=== PATIENT | female | born 1980 | race Caucasian/White ===

== ENCOUNTER 2023-10-31 03:43 | Emergency (ER) | payer OTHER ==
[2023-10-31] MEDS ORDERED: NA CHLORIDE 0.9% 1,000 ML ONE (04:48)
[2023-10-31] MEDS ORDERED: PROMETHAZINE 25 MG TABLET ONE (05:05)
[2023-10-31] MEDS ORDERED: HYDROCODONE/APAP 5/325 MG TAB ONE (05:05)
[2023-10-31 05:06] LABS: Hematocrit 33.6 % (36.0-45.0); MCV 102.3 fL (80-100); MPV 7.7 fL (7.6-11.3); Platelets 177 thou/uL (152-406); RBC Red Blood Cell Count 3.28 M/uL (3.86-4.86)
[2023-10-31 05:12] LABS: Specific Gravity 1.021 (1.005-1.030)
[2023-10-31 05:24] LABS: Urine Bacteria None Seen /HPF (<20); Urine Bilirubin NEGATIVE (Negative); Urine Blood Negative (Negative); Urine Clarity Extremely Turbid (Clear); Urine Color Light-Orange (Yellow); Urine Glucose NEGATIVE (Negative); Urine Protein NEGATIVE (Negative); Urine RBC None Seen /HPF (None Seen); Urine Urobilinogen Normal (Normal); Urine pH 7.5 (5.0-7.0)
[2023-10-31 05:25] LABS: Albumin 3.2 g/dL (3.4-5.0); Bilirubin Total 0.3 mg/dL (0.2-1.0); Potassium 3.3 mEq/L (3.5-5.1); Protein, Total 7.1 g/dL (6.4-8.2)
[2023-10-31] MEDS ORDERED: AZITHROMYCIN 250 MG TAB ONE (06:52)
[2023-10-31] MEDS ORDERED: CEFTRIAXONE 1000 MG/VIAL ONE (06:52)
--- NOTE | 2023-10-31 06:52 | ER ---
Nurse's Notes [facility] Name: Kaylie Morrow Age: 42 yrs Sex: Female : 1980 Arrival Date: 10/31/2023 Time: 03:43 Bed 16 Private MD: Diagnosis: Pleurisy;Strain of muscle and tendon of front wall of thorax;Strain of muscle and tendon of back wall of thorax;Fracture of one rib, right side;Atelectasis Presentation: 10/31 04:04 Chief complaint: Patient states: pt was laying on the floor and got up, hurt the right rv side of the ribs, heard a popping sound, 2 days ago. turned and twisted the wrong way and hurt the right side again, complaining of pain when breathing. hx of vitamin C and D deficiency. Coronavirus screen: At this time, the client does not indicate any symptoms associated with coronavirus-19. Ebola Screen: No symptoms or risks identified at this time. Initial Sepsis Screen: Does the patient meet any 2 criteria? No. Patient's initial sepsis screen is negative. Does the patient have a suspected source of infection? No. Patient's initial sepsis screen is negative. Risk Assessment: Do you want to hurt yourself or someone else? Patient reports no desire to harm self or others. Onset of symptoms was October 31, 2023. 04:04 Method Of Arrival: Ambulatory 04:04 Acuity: MONI 4 rv Triage Assessment: 04:07 General: Appears uncomfortable, Behavior is calm, cooperative. Pain: Complains of pain rv in right lateral anterior chest. Neuro: Level of Consciousness is awake, alert, obeys commands, Oriented to person, place, time, situation. Cardiovascular: Capillary refill < 3 seconds Patient's skin is warm and dry. Respiratory: Airway is patent Respiratory effort is even, unlabored. Respiratory: Reports pain with respiration. GI: No signs and/or symptoms were reported involving the gastrointestinal system. : No signs and/or symptoms were reported regarding the genitourinary system. Derm: Skin is intact, Skin temperature is. Historical: - Allergies: 04:07 Toradol; rv 04:07 Demerol; rv 04:07 Tramadol HCl; rv - PMHx: 04:07 chiari malformation; vitamin C and D deficiency; ...tachycardia syndrome; rv - PSHx: 04:07 section; Ligation of fallopian tube; Appendectomy; chiari malformation surgery;rv - Immunization history:: Adult Immunizations up to date. - Social history:: Smoking status: Patient reports the use of cigarette tobacco products, smokes one pack cigarettes per day. - Family history:: not pertinent. Screenin:10 [facility] ED Fall Risk Assessment (Adult) History of falling in the last 3 months, rv including since admission No falls in past 3 months (0 pts) Score/Fall Risk Level 0 - 2 = Low Risk Oriented to surroundings, Maintained a safe environment, Educated pt \T\ family on fall prevention, incl call for assistance when getting out of bed, Assessed \T\ reinforced patient's understanding of fall precautions. Abuse screen: Denies threats or abuse. Denies injuries from another. Nutritional screening: No deficits noted. Tuberculosis screening: No symptoms or risk factors identified. Assessment: 04:16 General: Appears in no apparent distress. uncomfortable, Behavior is calm, cooperative, km8 appropriate for age. Pain: Complains of pain in right lateral anterior chest Pain currently is 8 out of 10 on a pain scale. Quality of pain is described as aching. Neuro: Akers Agitation-Sedation Scale (RASS): 0 - Alert and Calm Level of Consciousness is awake, alert, obeys commands, Oriented to person, place, time, situation. Cardiovascular: Capillary refill < 3 seconds Patient's skin is warm and dry. Respiratory: Airway is patent Respiratory effort is even, unlabored, Respiratory pattern is regular, symmetrical. GI: No signs and/or symptoms were reported involving the gastrointestinal system. : No signs and/or symptoms were reported regarding the genitourinary system. EENT: No signs and/or symptoms were reported regarding the EENT system. Derm: Skin is intact, is healthy with good turgor, Skin is dry, Skin is pink, warm \T\ dry. normal, Skin temperature is warm. Musculoskeletal: No signs and/or symptoms reported regarding the musculoskeletal system. Circulation, motion, and sensation intact. Range of motion: intact in all extremities. 05:00 Reassessment: Patient appears in no apparent distress at this time. No changes from km8 previously documented assessment. Patient and/or family updated on plan of care and expected duration. Pain level reassessed. Patient is alert, oriented x 3, equal unlabored respirations, skin warm/dry/pink. 06:00 Reassessment: Patient appears in no apparent distress at this time. No changes from km8 previously documented assessment. Patient and/or family updated on plan of care and expected duration. Pain level reassessed. Patient is alert, oriented x 3, equal unlabored respirations, skin warm/dry/pink. Vital Signs: 04:04 BP 110 / 64; Pulse 55; Resp 16; Temp 98; Pulse Ox 100% ; Weight 70.76 kg; Height 5 ft. rv 3 in. ; 06:47 BP 119 / 78; Pulse 59; Resp 16; Pulse Ox 100% on R/A; km8 04:04 Body Mass Index 27.63 (70.76 kg, 160.02 cm) rv [place] Coma Score: 04:16 Eye Response: spontaneous(4). Motor Response: obeys commands(6). Verbal Response: km8 oriented(5). Total: 15. ED Course: 03:50 Patient arrived in ED. gm2 04:07 Triage completed. rv 04:07 Arm band placed on right wrist. rv 04:10 Patient has correct armband on for positive identification. Client placed on continuous rv cardiac and pulse oximetry monitoring. NIBP monitoring applied. 04:10 No provider procedures requiring assistance completed. rv 04:13 Gary Bynum MD is Attending Physician. lul 04:13 Bibiana Garduno, SHADIA is Primary Nurse. km8 04:16 Patient maintains SpO2 saturation greater than 95% on room air. km8 04:42 PREGU Sent. km8 04:42 Urinalysis w/ reflexes Sent. km8 04:42 Lipase Sent. km8 04:42 Comprehensive Metabolic Panel Sent. km8 04:42 CBC with Diff Sent. km8 04:42 Inserted saline lock: 20 gauge in left antecubital area, using aseptic technique. Blood km8 collected. 05:05 Chest Single View XRAY In Process Unspecified. EDMS 06:18 CT Chest For PE Angio In Process Unspecified. EDMS 06:47 Provided Education on: IS teaching. km8 06:47 INCENTIVE SPIROMETRY Sent. km8 06:51 Isai Neville MD is Referral Physician. lul 07:13 IV discontinued, intact, bleeding controlled, No redness/swelling at site. Pressure km8 dressing applied. Administered Medications: 04:42 Drug: NS 0.9% IV 1000 ml IV at 1 bolus Per protocol; 1000 mL bolus Route: IV; Rate: 1 km8 bolus; Site: left antecubital; 05:56 Follow up: IV Status: Completed infusion; IV Intake: 1000ml km8 04:52 Drug: [place] PO 5 mg-325 mg 2 tabs PO once Route: PO; km8 05:56 Follow up: Response: No adverse reaction; Pain is decreased km8 04:52 Drug: Promethazine PO 25 mg PO once Route: PO; km8 05:56 Follow up: Response: No adverse reaction km8 06:47 Drug: Rocephin IV 1 grams IV at per protocol once; Given slow IV push per pharmacy km8 instructions Route: IV; Rate: per protocol; Site: left antecubital; 06:55 Follow up: IV Status: Completed infusion km8 06:47 Drug: AZITHromycin PO 500 mg PO once Route: PO; km8 07:13 Follow up: Response: Medication administered at discharge. km8 Medication: 04:10 VIS not applicable for this client. rv Intake: 05:56 IV: 1000ml; Total: 1000ml. km8 Outcome: 06:51 Discharge ordered by MD. mccarty 07:14 Discharged to home ambulatory, with significant other, km8 07:14 Condition: good 07:14 Discharge instructions given to patient, significant other, Instructed on discharge instructions, follow up and referral plans. medication usage, Demonstrated understanding of instructions, follow-up care, medications, Prescriptions given X 3, 07:15 Patient left the ED. km8 Signatures: Dispatcher [employer] EDMS Gary Bynum MD MD cha Vicente, Ronaldo, RN RN Abbey Sosa [facility] Bibiana Garduno RN RN km8 Corrections: (The following items were deleted from the chart) 04:09 04:07 Allergies: No Known Allergies; rv rv
--- NOTE | 2023-10-31 06:52 | EDPHYS ---
Physician Documentation [facility] Name: Kaylie Morrow Age: 42 yrs Sex: Female : 1980 Arrival Date: 10/31/2023 Time: 03:43 Bed 16 Private MD: ED Physician Gary Bynum HPI: 10/31 05:11 This 42 yrs old Female presents to ER via Ambulatory with complaints of Rt lul rib pain. 05:11 The patient has shortness of breath at rest, with light activity. Onset: The lul symptoms/episode began/occurred 2 day(s) ago. Duration: The symptoms are continuous, and are steadily getting worse. The patient's shortness of breath is aggravated by coughing, exertion, light activity, is alleviated by nothing. Associated signs and symptoms: Pertinent positives: chest pain. Severity of symptoms: At their worst the symptoms were moderate in the emergency department the symptoms are unchanged. Associated signs and symptoms: The patient has no apparent associated signs or symptoms. The chest pain is described as sharp. Historical: - Allergies: 04:07 Toradol; rv 04:07 Demerol; rv 04:07 Tramadol HCl; rv - PMHx: 04:07 chiari malformation; vitamin C and D deficiency; ...tachycardia syndrome; rv - PSHx: 04:07 section; Ligation of fallopian tube; Appendectomy; chiari malformation surgery;rv - Immunization history:: Adult Immunizations up to date. - Social history:: Smoking status: Patient reports the use of cigarette tobacco products, smokes one pack cigarettes per day. - Family history:: not pertinent. ROS: 05:11 Constitutional: Negative for fever, chills, and weight loss, Eyes: Negative for injury, lul pain, redness, and discharge, ENT: Negative for injury, pain, and discharge, Neck: Negative for injury, pain, and swelling, Cardiovascular: Negative for chest pain, palpitations, and edema, Abdomen/GI: Negative for abdominal pain, nausea, vomiting, diarrhea, and constipation, Back: Negative for injury and pain, : Negative for injury, bleeding, discharge, and swelling, MS/Extremity: Negative for injury and deformity, Skin: Negative for injury, rash, and discoloration, Neuro: Negative for headache, weakness, numbness, tingling, and seizure, Psych: Negative for depression, anxiety, suicide ideation, homicidal ideation, and hallucinations, Allergy/Immunology: Negative for hives, rash, and allergies, Endocrine: Negative for neck swelling, polydipsia, polyuria, polyphagia, and marked weight changes, Hematologic/Lymphatic: Negative for swollen nodes, abnormal bleeding, and unusual bruising, 05:11 Respiratory: Positive for cough, Exam: 05:11 Constitutional: This is a well developed, well nourished patient who is awake, alert, lul and in no acute distress. Head/Face: Normocephalic, atraumatic. Eyes: Pupils equal round and reactive to light, extra-ocular motions intact. Lids and lashes normal. Conjunctiva and sclera are non-icteric and not injected. Cornea within normal limits. Periorbital areas with no swelling, redness, or edema. ENT: Nares patent. No nasal discharge, no septal abnormalities noted. Tympanic membranes are normal and external auditory canals are clear. Oropharynx with no redness, swelling, or masses, exudates, or evidence of obstruction, uvula midline. Mucous membranes moist. Neck: Trachea midline, no thyromegaly or masses palpated, and no cervical lymphadenopathy. Supple, full range of motion without nuchal rigidity, or vertebral point tenderness. No Meningismus. Cardiovascular: Regular rate and rhythm with a normal S1 and S2. No gallops, murmurs, or rubs. Normal PMI, no JVD. No pulse deficits. Respiratory: Lungs have equal breath sounds bilaterally, clear to auscultation and percussion. No rales, rhonchi or wheezes noted. No increased work of breathing, no retractions or nasal flaring. Abdomen/GI: Soft, non-tender, with normal bowel sounds. No distension or tympany. No guarding or rebound. No evidence of tenderness throughout. Back: No spinal tenderness. No costovertebral tenderness. Full range of motion. Female : Normal external genitalia. Skin: Warm, dry with normal turgor. Normal color with no rashes, no lesions, and no evidence of cellulitis. MS/ Extremity: Pulses equal, no cyanosis. Neurovascular intact. Full, normal range of motion. Neuro: Awake and alert, GCS 15, oriented to person, place, time, and situation. Cranial nerves II-XII grossly intact. Motor strength 5/5 in all extremities. Sensory grossly intact. Cerebellar exam normal. Normal gait. 05:11 Chest/axilla: Inspection: normal, no acute changes, Palpation: tenderness, that is moderate, of the right lateral posterior chest and right lateral anterior chest, Axilla: are normal, no acute changes, Lymph nodes: lymphadenopathy is not appreciated, Vital Signs: 04:04 BP 110 / 64; Pulse 55; Resp 16; Temp 98; Pulse Ox 100% ; Weight 70.76 kg; Height 5 ft. rv 3 in. ; 06:47 BP 119 / 78; Pulse 59; Resp 16; Pulse Ox 100% on R/A; km8 04:04 Body Mass Index 27.63 (70.76 kg, 160.02 cm) rv [place] Coma Score: 04:16 Eye Response: spontaneous(4). Motor Response: obeys commands(6). Verbal Response: km8 oriented(5). Total: 15. MDM: 04:13 Patient medically screened. lul 05:15 Differential diagnosis: Pneumothorax Chest Wall Contusion Chest Wall Injury lul Pneumomediastinum Pneumopericardium Pneumothorax Pulmonary Contusion Rib Fracture. Antibiotic administration: Not indicated. Immunization status:. Data reviewed: vital signs, nurses notes. Consideration of Admission/Observation Escalation of care including admission/observation considered. I considered the following discharge prescriptions or medication management in the emergency department Medications were administered in the Emergency Department. See MAR. Test considered but Not performed: EKG: NO EKG. Care significantly affected by the following chronic conditions: CHIARI MAL, VIT C AND D DEFIN,TACHY. Counseling: I had a detailed discussion with the patient and/or guardian regarding the historical points, exam findings, and any diagnostic results supporting the discharge/admit diagnosis, lab results, radiology results, the need for outpatient follow up. 10/31 04:26 Order name: CBC with Diff; Complete Time: 06:26 [facility] 10/31 04:26 Order name: Comprehensive Metabolic Panel; Complete Time: 06:26 [facility] 10/31 04:26 Order name: Lipase; Complete Time: 06:26 [facility] 10/31 04:26 Order name: Urinalysis w/ reflexes; Complete Time: 06:26 [facility] 10/31 04:26 Order name: PREGU; Complete Time: 06:26 [facility] 10/31 04:26 Order name: Chest Single View XRAY [facility] 10/31 04:26 Order name: CT Chest For PE Angio lul 10/31 05:11 Order name: INCENTIVE SPIROMETRY lul Administered Medications: 04:42 Drug: NS 0.9% IV 1000 ml IV at 1 bolus Per protocol; 1000 mL bolus Route: IV; Rate: 1 km8 bolus; Site: left antecubital; 05:56 Follow up: IV Status: Completed infusion; IV Intake: 1000ml 8 04:52 Drug: [place] PO 5 mg-325 mg 2 tabs PO once Route: PO; km8 05:56 Follow up: Response: No adverse reaction; Pain is decreased km8 04:52 Drug: Promethazine PO 25 mg PO once Route: PO; km8 05:56 Follow up: Response: No adverse reaction 8 06:47 Drug: Rocephin IV 1 grams IV at per protocol once; Given slow IV push per pharmacy km8 instructions Route: IV; Rate: per protocol; Site: left antecubital; 06:55 Follow up: IV Status: Completed infusion 8 06:47 Drug: AZITHromycin PO 500 mg PO once Route: PO; km8 07:13 Follow up: Response: Medication administered at discharge. [facility] Disposition Summary: 10/31/23 06:51 Discharge Ordered Notes: Location: Home lul Problem: new lul Symptoms: have improved lul Condition: Stable lul Diagnosis - Pleurisy lul - Strain of muscle and tendon of front wall of thorax lul - Strain of muscle and tendon of back wall of thorax lul - Fracture of one rib, right side lul - Atelectasis lul Followup: lul - With: Private Physician - When: 2 - 3 days - Reason: Recheck today's complaints, Continuance of care, Re-evaluation by your physician Followup: lul - With: Isai Neville MD - When: 2 - 3 days - Reason: Recheck today's complaints, Continuance of care, Re-evaluation by your physician Discharge Instructions: - Discharge Summary Sheet lul - Atelectasis, Adult lul - Pleurisy lul - Community-Acquired Pneumonia, Adult lul - How to Use an Incentive Spirometer lul - Community-Acquired Pneumonia, Adult, [id number] lul - Pleurisy, [id number] [facility] Forms: - Medication Reconciliation Form lul - Thank You Letter lul - Antibiotic Education lul - Prescription Opioid Use lul - Patient Portal Instructions lul - Leadership Thank You Letter lul - Work release form eb Prescriptions: - acetaminophen-codeine 300-30 mg Oral tablet - take 2 tablet ORAL route every 6 hours as needed for pain; 20 tablet; Refills: lul 0, Product Selection Permitted - albuterol sulfate 90 mcg/actuation Inhalation HFA Aerosol Inhaler - inhale 2 inhalation INHALATION route every 4 to 6 hours as needed for lul bronchospasm; administer via ventilator; 1 unit; Refills: 0, Product Selection Permitted - Zithromax 500 mg Oral Tablet - take 1 tablet ORAL route once daily for 5 days; 5 tablet; Refills: 0, Product lul Selection Permitted Signatures: Dispatcher [employer] Gary Mann MD MD cha Vicente, Ronaldo, RN RN rv Bibiana Garduno RN RN km8 Corrections: (The following items were deleted from the chart) 04:09 04:07 Allergies: No Known Allergies; rv rv
[2023-10-31 07:28] VITALS: TEMP 98; O2SAT 100
[2023-10-31 07:36] VITALS: BP 119/78
--- NOTE | 2023-11-02 11:14 | RAD REPORT ---
EXAM DESCRIPTION: CT - Chest For Pe Angio - 10/31/2023 7:21 am CLINICAL HISTORY: Suspected pulmonary embolus. COMPARISON: None. TECHNIQUE: Intravenous low osmolar contrast. Coronal and sagittal reformations including 3D maximu m intensity projections. This exam was performed according to our departmental dose-optimization program, which includes autom ated exposure control, adjustment of the mA and/or kV according to patient size and/or use of iterati ve reconstruction technique. FINDINGS: PULMONARY ARTERIAL SYSTEM: Contrast bolus is adequate. No CT evidence for pulmonary embo lism. CARDIAC: Normal. AORTA/VASCULAR: No aneurysm. LYMPH NODES/MEDIASTINUM: No thoracic adenopathy. CENTRAL AIRWAYS: Central airways are patent. LUNGS: No focal consolidation. Bilateral mosaic attenuation. Linear opacities in the bilateral lower lobes, likely subsegmental atelectasis or scarring. PLEURA: Normal. ESOPHAGUS: Collapsed and not well assessed by CT, without obvious abnormality. THYROID: Negative, where seen. CHEST WALL: Normal. UPPER ABDOMEN: Normal. THORACIC SKELETAL: No acute finding. ADDITIONAL CHEST FINDINGS: None. IMPRESSION: 1. No acute pulmonary embolus. 2. Mosaic attenuation in the lungs bilaterally, suggesting underlying small airway disease. 3. No focal pulmonary consolidation. Linear opacities in the bilateral lower lobes, most consistent w ith subsegmental atelectasis or scarring. Electronically signed by: Sav Redmond MD 10/31/2023 06:37 AM SUPERVISOR TELLERS Due to temporary technical issues with the PACS/Fluency reporting system, reports are being signed by the in house radiologist without review as a courtesy to ensure prompt reporting. The interpreting r adiologist is fully responsible for the content of the report.
--- NOTE | 2023-11-02 12:16 | RAD REPORT ---
EXAM DESCRIPTION: RAD - Chest Single View - 10/31/2023 5:03 am CLINICAL HISTORY: COUGH COMPARISON: None. FINDINGS: Single frontal radiograph view of the chest. Cardiomediastinal silhouette: Normal size and contour. Lungs: Patchy right basilar opacity. No pneumothorax or large effusion. Bones: No acute osseous abnormality. Upper abdomen: No abnormality identified. IMPRESSION: 1. Mild patchy right basilar opacities may represent atelectasis or developing pneumonia . Electronically signed by: Dwaine Sunshine DO 10/31/2023 05:35 AM BIOINFORMATICS ENGINEER M Due to temporary technical issues with the PACS/Fluency reporting system, reports are being signed by the in house radiologist without review as a courtesy to ensure prompt reporting. The interpreting r adiologist is fully responsible for the content of the report.
== END 2023-10-31 07:15 | disposition home or self-care (01) ==
LOC: ER 03:43
DX: S22.31XA Fracture of one rib, right side, initial encounter for closed fracture (principal); R09.1 Pleurisy; S29.011A Strain of muscle and tendon of front wall of thorax, initial encounter; S29.012A Strain of muscle and tendon of back wall of thorax, initial encounter; J98.11 Atelectasis; F17.210 Nicotine dependence, cigarettes, uncomplicated
CPT/HCPCS: 96361; 85025; 81001; 36415; 81025; 83690; 80053; 71275; 71045; 96374; 99285; Q9967; Q0169; J7030; J0696

== ENCOUNTER → 2024-01-28 | Emergency (ER) | payer OTHER ==
--- OUTSIDE RECORDS SUMMARY | 2024-01-28 21:22 | XMS REPORT | Continuity of Care Document ---
Author Name Unknown Address [address] [place] [address] [employer] Address [address] [place] [address] [address] [place] [address] Care Team Providers Care Pit Furnace Melter Name Role Phone HAYLEY Attending Clinician Unavailable HAYLEY Admitting Clinician Unavailable Encounters Start Date/Time End Date/Time Encounter Type Admission Type Attending Clinicians Care Facility Care Department Encounter ID Source 2022-06-12 04:13:00 2022-06-12 04:13:00 Outpatient LULU CORLEY [facility] [id number] mcf[address]ane [facility] Program
[2024-01-28 21:50] LABS: Absolute Lymphocytes (CBC) 2.4 K/uL (0.7-4.9); Basophils % 0.8 % (0-1.3); Hematocrit 33.7 % (36.0-45.0); Lymphocytes % 46.6 % (15.3-44.8); MCV 100.8 fL (80-100); MPV 7.4 fL (7.6-11.3); Platelets 130 thou/uL (152-406); RBC Red Blood Cell Count 3.35 M/uL (3.86-4.86)
[2024-01-28 21:58] LABS: Protime INR 1.21
[2024-01-28 22:08] LABS: ALT/SGPT 13 U/L (13-56); AST/SGOT 6 U/L (15-37); Albumin 3.4 g/dL (3.4-5.0); Alkaline Phosphatase 87 U/L (45-117); Anion Gap 7.3 mEq/L (5.0-15.0); BUN Blood Urea Nitrogen 14 mg/dL (7-18); Bicarbonate 22 mEq/L (21-32); Bilirubin Total 0.3 mg/dL (0.2-1.0); Glomerular Filtration Rate 73 ml/min (=/>90); Glucose Level 90 mg/dL (74-106); Magnesium 2.2 mg/dL (1.6-2.4); NT PRO-BNP 31 pg/mL (<125); Potassium 3.3 mEq/L (3.5-5.1); Protein, Total 6.7 g/dL (6.4-8.2); Sodium Level 140 mEq/L (136-145); Troponin High Sensitivity 3.7 pg/mL (<58.9)
[2024-01-28 22:10] LABS: Bilirubin Direct < 0.1 mg/dL (0-0.2); Bilirubin Indirect, Calculated ND mg/dL (0.2-0.8)
[2024-01-28 22:15] LABS: Urine Bacteria None Seen /HPF (<20); Urine Mucus Slight /HPF (None Seen); Urine RBC <5 /HPF (None Seen)
[2024-01-28 22:17] LABS: Urine Bilirubin NEGATIVE (Negative); Urine Blood Negative (Negative); Urine Clarity Turbid (Clear); Urine Color Yellow (Yellow); Urine Glucose Negative (Negative); Urine Protein Trace (Negative); Urine Urobilinogen 1+ (Normal)
[2024-01-28 22:19] LABS: Barbiturates NEGATIVE (NEGATIVE); Benzodiazepines NEGATIVE (NEGATIVE); Cocaine NEGATIVE (NEGATIVE); METHAMPHETAM NEGATIVE (NEGATIVE); Methadone NEGATIVE (NEGATIVE); Opiates POSITIVE (NEGATIVE); Phencyclidine NEGATIVE (NEGATIVE); THC Cannibis POSITIVE (NEGATIVE)
--- NOTE | 2024-01-28 22:30 | RAD REPORT ---
EXAM DESCRIPTION: RADChest Single View01/28/2024 10:02 pm CLINICAL HISTORY: CHEST PAIN COMPARISON: Chest Single View dated 10/31/2023; Chest For Pe Angio dated 10/31/2023 TECHNIQUE: Portable AP view of the chest. FINDINGS: Stable hazy right basilar opacification, favoring atelectasis. No pneumothorax or effusion . The cardiomediastinal contours are unremarkable. IMPRESSION: No acute cardiopulmonary process.
[2024-01-28 23:25] LABS: T3 Free 1.72 pg/mL (2.18-3.98); Thyroid Stimulating Hormone 2.58 uIU/mL (0.358-3.740)
--- NOTE | 2024-01-28 23:31 | EDPHYS ---
Physician Documentation [facility] Name: Kaylie Morrow Age: 43 yrs Sex: Female : 1980 Arrival Date: 01/28/2024 Time: 21:18 Bed 4 Private MD: ED Physician Lex Berumen HPI: 01/27 21:30 This 43 yrs old Female presents to ER via EMS with complaints of Palpitations. cp 21:30 The patient presents with a history of heart racing. Context: The symptoms occur at cp rest. 21:30 Onset: The symptoms/episode began/occurred suddenly, just prior to arrival. cp 21:30 Duration: The patient or guardian reports a single episode, that is now resolved. cp Associated signs and symptoms: Pertinent positives: chest pain. The patient has experienced similar episodes in the past, a few times, but today's symptoms are worse, lasting longer. 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 Had patient "bear down" causing to improve rhythm and symptoms. 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 - Social history:: Smoking status: Patient reports the use of cigarette tobacco products, smokes one pack cigarettes per day. Patient/guardian denies using alcohol, street drugs. ROS: 21:35 Cardiovascular: Positive for chest pain, palpitations, Negative for edema, cp 21:35 Eyes: Negative for injury, pain, redness, and discharge, cp 21:35 Constitutional: Negative for body aches, chills, fever, poor PO intake, 21:35 ENT: Negative for drainage from ear(s), ear pain, sore throat, difficulty swallowing, difficulty handling secretions, 21:35 Respiratory: Negative for cough, wheezing, 21:35 Abdomen/GI: Negative for abdominal pain, vomiting, diarrhea, constipation, 21:35 Neuro: Negative for altered mental status, headache, syncope, near syncope, weakness, 21:35 All other systems are negative, Exam: 21:32 ECG was reviewed by the Attending Physician. cp 21:40 Constitutional: The patient appears in no acute distress, alert, awake, cp non-diaphoretic, non-toxic, well developed, well nourished, 21:40 Head/Face: Normocephalic, atraumatic. cp 21:40 Eyes: Periorbital structures: appear normal, Conjunctiva: normal, no exudate, no injection, Sclera: no appreciated abnormality, Lids and lashes: appear normal, bilaterally, 21:40 ENT: External ear(s): are unremarkable, Nose: is normal, Mouth: Lips: moist, Oral mucosa: pink and intact, moist, Posterior pharynx: Airway: no evidence of obstruction, patent, 21:40 Neck: ROM/movement: is normal, is supple, without pain, no range of motions limitations, 21:40 Chest/axilla: Inspection: normal, 21:40 Cardiovascular: Rate: normal, Rhythm: regular, Edema: is not appreciated, JVD: is not appreciated, 21:40 Respiratory: the patient does not display signs of respiratory distress, Respirations: normal, no use of accessory muscles, no retractions, labored breathing, is not present, Breath sounds: are clear throughout, no decreased breath sounds, no stridor, no wheezing, 21:40 Abdomen/GI: Inspection: abdomen appears normal, Palpation: abdomen is soft and non-tender, in all quadrants, 21:40 Back: pain, is absent, ROM is normal, 21:40 Neuro: Orientation: to person, place \\T\\ time. Mentation: is normal, Motor: moves all fours, strength is normal, Sensation: is normal, Vital Signs: 21:24 BP 101 / 65; Pulse 85; Resp 20; Temp 97.9; Pulse Ox 99% ; Weight 68.49 kg; Height 5 ft. jj7 3 in. ; Pain 0/10; 22:06 BP 99 / 65; Pulse 67; Pulse Ox 100% on R/A; Pain 0/10; tm6 23:00 BP 93 / 58; Pulse 72; Resp 17; Pulse Ox 99% ; jj7 23:26 BP 93 / 58; Pulse 65; Pulse Ox 100% on R/A; Pain 0/10; tm6 23:39 BP 93 / 58; Pulse 62; Resp 19; Temp 97.3(TE); Pulse Ox 99% on R/A; Pain 0/10; tm6 21:24 Body Mass Index 26.75 (68.49 kg, 160.02 cm) jj7 21:24 Pain Scale: Adult jj7 22:06 Pain Scale: Adult tm6 23:26 Pain Scale: Adult tm6 23:39 Pain Scale: Adult tm6 MDM: 21:21 Patient medically screened. cp 22:00 Differential diagnosis: arrythmia, dehydration, stress disorder, anxiety, electrolyte cp abnormality. 23:28 Data reviewed: vital signs, nurses notes, lab test result(s), EKG, radiologic studies, cp plain films. Response to treatment: the patient's symptoms have markedly improved after treatment. Refusal of service: The patient/guardian displays adequate decision making capability and despite a detailed discussion of alternatives, benefits, risks, and consequences refuses: CT Scan. 23:30 Independent interpretation of the following test(s) in the Emergency Department EKG: cp See my EKG interpretation above. 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 Special discussion: Based on the patient's history, exam, and Dx evaluation, there is no indication for emergent intervention or inpatient Tx. It is understood by the patient/guardian that if the Sx's persist or worsen they need to return immediately for re-evaluation. 01/27 21:22 Order name: Basic Metabolic Panel; Complete Time: 22:59 cp 01/27 22:59 Interpretation: Normal except: K 3.3; CL 114; GFR 73; CA 8.3. cp 01/27 21:22 Order name: CBC with Diff; Complete Time: 22:59 cp 01/27 23:00 Interpretation: Normal except: RBC 3.35; HGB 11.8; HCT 33.7; MCV 100.8; MCH 35.3; PLT cp 130; MPV 7.4; COLBY% 39.7; LYM% 46.6; EOSINOPHIL % 4.5. 03/ 21:22 Order name: D-Dimer; Complete Time: 22:59 cp 03/07 23:01 Interpretation: Reviewed. cp 03/ 21:22 Order name: LFT's; Complete Time: 22:59 cp 03/ 23:00 Interpretation: Normal except: AST 6; A/G 1.0. cp / 21:22 Order name: Magnesium; Complete Time: 22:59 cp 03/ 21:22 Order name: NT PRO-BNP; Complete Time: 22:59 cp 03/ 21:22 Order name: PT-INR; Complete Time: 22:59 cp / 21:22 Order name: Troponin HS; Complete Time: 22:59 cp /07 21:22 Order name: Urinalysis W/Microscopic; Complete Time: 22:59 cp / 21:22 Order name: UDS; Complete Time: 22:59 cp /07 23:00 Interpretation: Normal except: THC POSITIVE; OPI POSITIVE. cp 03/ 21:22 Order name: Test, Urine; Complete Time: 22:59 cp 03/07 22:36 Order name: TSH; Complete Time: 23:26 cp 03/07 23:27 Interpretation: Reviewed. cp 03/ 22:36 Order name: T3 Free; Complete Time: 23:26 cp 03/07 23:27 Interpretation: Abnormal: T3F 1.72. cp / 22:36 Order name: T4 Free; Complete Time: 23:26 cp 03/07 23:27 Interpretation: Reviewed. cp 03/ 21:22 Order name: XRAY Chest (1 view); Complete Time: 22:59 cp 03/07 21:22 Order name: EKG; Complete Time: 21:23 cp 03/ 21:22 Order name: Cardiac monitoring; Complete Time: 21:29 cp / 21:22 Order name: EKG - Nurse/Tech; Complete Time: 21:29 cp / 21:22 Order name: IV Saline Lock; Complete Time: 21:29 cp / 21:22 Order name: Labs collected and sent; Complete Time: 21:30 cp / 21:22 Order name: O2 Per Protocol; Complete Time: 21:30 cp 01/27 21:22 Order name: O2 Sat Monitoring; Complete Time: 21:30 cp EC:32 Rate is 73 beats/min. Rhythm is regular. MD interval is normal. QRS interval is normal. cp QT interval is normal. T waves are Inverted in lead aVR. Interpreted by me. Reviewed by me. Administered Medications: 21:36 Drug: NS 0.9% IV 1000 ml IV at 1 bolus Per protocol; 1000 mL bolus Route: IV; Rate: 1 jj7 bolus; Site: left antecubital; 22:40 Follow up: IV Status: Completed infusion jj7 22:59 Follow up: Response: No adverse reaction; IV Status: Completed infusion; IV Intake: tm6 1000ml Disposition: 01/28 02:38 Co-signature as Attending Physician, Lex Berumen MD I agree with the assessment sp4 and plan of care. I reviewed the patient's care provided by Advanced Practice Provider \\T\\ agree w/ the diagnosis \\T\\ care plan. I personally saw the pt \\T\\ performed a substantive portion of the visit, incldng all aspects of the (History/Exam/Medical Decision Making). Disposition Summary: 01/28/24 23:31 Discharge Ordered Notes: Location: Home cp Problem: new cp Symptoms: have improved cp Condition: Stable cp Diagnosis - Palpitations cp Followup: cp - With: Willie Joiner MD - When: 2 - 3 days - Reason: Recheck today's complaints Discharge Instructions: - Discharge Summary Sheet cp - Palpitations cp - Aspirin and Your Heart cp - Ambulatory Cardiac Monitoring cp Forms: - Medication Reconciliation Form cp - Thank You Letter cp - Antibiotic Education cp - Prescription Opioid Use cp - Patient Portal Instructions cp - Leadership Thank You Letter cp Signatures: Dispatcher [employer] EDGary Driver PA PA cp Johnson, Juwairiyah, RN RN jjLex Serrato MD MD sp4 Marilee Solomon RN tm6
--- NOTE | 2024-01-28 23:31 | ER ---
Nurse's Notes [facility] Name: Kaylie Morrow Age: 43 yrs Sex: Female : 1980 Arrival Date: 01/28/2024 Time: 21:18 Bed 4 Private MD: Diagnosis: Palpitations Presentation: 01/27 21:24 Chief complaint: Patient states: PALPITATIONS AND HEART RACING STARTED ROUND 2029. jj7 CALLED EMS EMS states: PT CALLED THEM FOR PALPITATIONS AND HEART RACING. WHEN THEY ARRIVED PT WAS IN SVT. THEY TOLD HER TO BARE DOWN AND SHE CONVERTED TO NSR. Coronavirus screen: At this time, the client does not indicate any symptoms associated with coronavirus-19. Ebola Screen: No symptoms or risks identified at this time. Initial Sepsis Screen: Does the patient meet any 2 criteria? No. Patient's initial sepsis screen is negative. Does the patient have a suspected source of infection? No. Patient's initial sepsis screen is negative. Risk Assessment: Do you want to hurt yourself or someone else? Patient reports no desire to harm self or others. Onset of symptoms. Care prior to arrival: Medication(s) given: Normal saline infusion. 21:24 Method Of Arrival: EMS: [facility] jj7 21:24 Acuity: MONI 3 jj7 Triage Assessment: 21:29 General: Appears in no apparent distress. comfortable, Behavior is calm, cooperative, jj7 appropriate for age. Pain: Denies pain. Cardiovascular: Denies chest pain, palpitations, shortness of breath, Chest pain is denied. 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 - Social history:: Smoking status: Patient reports the use of cigarette tobacco products, smokes one pack cigarettes per day. Patient/guardian denies using alcohol, street drugs. Screenin:31 [facility] ED Fall Risk Assessment (Adult) History of falling in the last 3 months, jj7 including since admission No falls in past 3 months (0 pts) Confusion or Disorientation No (0 pts) Intoxicated or Sedated No (0 pts) Impaired Gait No (0 pts) Mobility Assist Device Used No (0 pt) Altered Elimination No (0 pt) Score/Fall Risk Level 0 - 2 = Low Risk Oriented to surroundings, Maintained a safe environment, Educated pt \T\ family on fall prevention, incl call for assistance when getting out of bed. Abuse screen: Denies threats or abuse. Nutritional screening: No deficits noted. Tuberculosis screening: No symptoms or risk factors identified. Assessment: 21:31 Reassessment: SEE TRIAGE ASSESSMENT. [facility] 22:06 Reassessment: Patient and/or family updated on plan of care and expected duration. Pain tm6 level reassessed. Patient is alert, oriented x 3, equal unlabored respirations, skin warm/dry/pink. 23:27 Reassessment: Patient and/or family updated on plan of care and expected duration. Pain tm6 level reassessed. Patient is alert, oriented x 3, equal unlabored respirations, skin warm/dry/pink. Vital Signs: 21:24 BP 101 / 65; Pulse 85; Resp 20; Temp 97.9; Pulse Ox 99% ; Weight 68.49 kg; Height 5 ft. jj7 3 in. ; Pain 0/10; 22:06 BP 99 / 65; Pulse 67; Pulse Ox 100% on R/A; Pain 0/10; tm6 23:00 BP 93 / 58; Pulse 72; Resp 17; Pulse Ox 99% ; jj7 23:26 BP 93 / 58; Pulse 65; Pulse Ox 100% on R/A; Pain 0/10; tm6 23:39 BP 93 / 58; Pulse 62; Resp 19; Temp 97.3(TE); Pulse Ox 99% on R/A; Pain 0/10; tm6 21:24 Body Mass Index 26.75 (68.49 kg, 160.02 cm) j7 21:24 Pain Scale: Adult j7 22:06 Pain Scale: Adult tm6 23:26 Pain Scale: Adult tm6 23:39 Pain Scale: Adult tm6 ED Course: 21:20 Patient arrived in ED. cm10 21:21 Gary Dueñas PA is PHCP. cp 21:21 Lex Berumen MD is Attending Physician. cp 21:23 Maintain EMS IV. Dressing intact. Good blood return noted. Site clean \T\ dry. Gauge \T\ jj 7 site: 20G LEFT AC. 21:28 Triage completed. jj7 21:29 Arm band placed on right wrist. Patient placed in an exam room, on a stretcher, on jj7 night monitor, on pulse oximetry. EKG completed in triage. Results shown to MD. 21:30 EKG done, by ED staff, reviewed by Gary KOHLER. tm6 21:31 Patient has correct armband on for positive identification. Placed in gown. Bed in low jj7 position. Call light in reach. Side rails up X 1. Adult w/ patient. Client placed on continuous cardiac and pulse oximetry monitoring. NIBP monitoring applied. night monitor on. Warm blanket given. 21:34 Lakshmi Cat RN is Primary Nurse. jj7 22:04 XRAY Chest (1 view) In Process Unspecified. EDMS 22:05 Urine collected: clean catch specimen, clear, Amount Voided: 100mL. tm6 22:06 Test, Urine Sent. tm6 22:06 UDS Sent. tm6 22:06 Urinalysis W/Microscopic Sent. tm6 23:30 Willie Joiner MD is Referral Physician. cp 23:36 No provider procedures requiring assistance completed. IV discontinued, intact, jj7 bleeding controlled, No redness/swelling at site. Pressure dressing applied. 23:39 Provided Education on: follow up with cardiology. tm6 Administered Medications: 21:36 Drug: NS 0.9% IV 1000 ml IV at 1 bolus Per protocol; 1000 mL bolus Route: IV; Rate: 1 jj7 bolus; Site: left antecubital; 22:40 Follow up: IV Status: Completed infusion jj7 22:59 Follow up: Response: No adverse reaction; IV Status: Completed infusion; IV Intake: tm6 1000ml Medication: 21:31 VIS not applicable for this client. jj7 Intake: 22:59 IV: 1000ml; Total: 1000ml. tm6 Outcome: 23:31 Discharge ordered by . cp 23:36 Discharged to home ambulatory, with significant other, drew 23:36 Condition: improved 23:36 Discharge instructions given to patient, Instructed on discharge instructions, follow up and referral plans. Demonstrated understanding of instructions, follow-up care, 23:40 Patient left the ED. tm6 Signatures: Dispatcher [employer] EDMS Gary Dueñas PA PA cp Johnson, Juwairiyah RN RN jj7 Mariama Lockett RN RN cm10 Marilee Solomon RN RN tm6
[2024-01-29 00:44] VITALS: BP 93/58; TEMP 97.3; O2SAT 99
== END ==
LOC: ER 21:18
DX: R00.2 Palpitations (principal); R07.9 Chest pain, unspecified; F17.210 Nicotine dependence, cigarettes, uncomplicated; Z88.5 Allergy status to narcotic agent
CPT/HCPCS: 36415; 71045; 80048; 80076; 80307; 81001; 81025; 83735; 83880; 84439; 84443; 84481; 84484; 85025; 85379; 85610; 93005; 96360; 99285

== ENCOUNTER 2024-11-19 12:33 | Emergency (ER) | payer OTHER ==
--- OUTSIDE RECORDS SUMMARY | 2024-11-19 12:37 | XMS REPORT | Continuity of Care Document ---
Author Name Unknown Address [address] [facility] Roberto. [address] [place] [address] [facility] Address [address] [facility] Roberto. [address] [place] [address] Care Team Providers Care Electronic Warfare Linguist Name Role Phone Camille Mendez Primary Care Physician AMBAROLDO_JUAN C Attending Clinician Unavailable AMBREEN_LARRYA Admitting Clinician Unavailable Allergies, Adverse Reactions, Alerts Allergy Name Allergy Type Status Severity Reaction(s) Onset Date Inactive Date Treating Clinician Comments Source Avril Lea ty to adverse reaction to drug Active 04-25 00:00: 00 Lemuel Duke Medications Ordered Medication Name Filled Medication Name Start Date Stop Date Current Medication? Ordering Clinician Indication Dosage Frequency Signature (SIG) Comments Components Source methocarbam ol 750 mg tablet 2023-11 00:00: 00 Yes 1mg Lemuel Duke Unithroid 50 mcg tablet 2023-11 00:00: 00 Yes 1mcg Lemuel Duke montelukast 10 mg tablet 2023-11 00:00: 00 Yes 1mg Lemuel Duke Trintellix 10 mg tablet 2023-11 00:00: 00 Yes 1mg Leumel Duke Unithroid 50 mcg tablet 2023-11 00:00: 00 Yes mcg Lemuel Duke lamotrigine 100 mg tablet 2023-11 00:00: 00 Yes 1mg Lemuel Duke Ventolin HFA 90 mcg/actuati on aerosol inhaler 2023-11 0- 00:00: 00 Yes 1mcg/ac tuation Lemuel Duke famotidine 40 mg tablet 2023-11 0- 00:00: 00 Yes 1mg Lemuel Duke Combivent Respimat 20 mcg-100 mcg/actuati on solution for inhalation 2023-11 0-09 00:00: 00 Yes 1mcg/ac tuation Lemuel Duke topiramate 100 mg tablet 2023-11 0-07 00:00: 00 Yes 1mg Lemuel Duke promethazin e 25 mg tablet 08-10 00:00: 00 Yes 1mg Lemuel Duke fludrocorti sone 0.1 mg tablet 08-10 00:00: 00 Yes 1mg Lemuel Duke gabapentin 600 mg tablet 08-10 00:00: 00 Yes 2mg Lemuel Duke levothyroxi ne 50 mcg tablet 08-10 00:00: 00 Yes 1mcg Lemuel Duke fluticasone propionate 115 mcg-salmete rol 21 mcg/actuati on HFA inhaler 07-18 00:00: 00 Yes 1mcg/ac tuation Lemuel Duke Ventolin HFA 90 mcg/actuati on aerosol inhaler 07-18 00:00: 00 Yes 1mcg/ac tuation Lemuel Duke famotidine 40 mg tablet 07-18 00:00: 00 Yes 1mg Lemuel Duke montelukast 10 mg tablet 07-18 00:00: 00 Yes 1mg Lemuel Duke Trintellix 10 mg tablet 07-18 00:00: 00 Yes 1mg Lemuel Duke Combivent Respimat 20 mcg-100 mcg/actuati on solution for inhalation 07-18 00:00: 00 Yes 1mcg/ac tuation Lemuel Duke Lamictal 100 mg tablet 06-20 00:00: 00 Yes 1mg Lemuel Duke methocarbam ol 750 mg tablet 06-20 00:00: 00 Yes 1mg Lemuel Duke ciclopirox 8 % topical solution 06-20 00:00: 00 Yes % Lemuel Duke metronidazo le 500 mg tablet - 00:00: 00 Yes 1mg Lemuel Duke topiramate 100 mg tablet 05-16 00:00: 00 Yes 1mg Lemuel Duke sulfamethox azole 800 mg-trimetho prim 160 mg tablet 04-30 00:00: 00 Yes 1mg Lemuel Duke Immunizations Ordered Immunization Name Filled Immunization Name Date Status Comments Source Influenza, injectable, Madin [place] Canine Kidney, preservative-free, quadrivalent Influenza, injectable, Madin Dorina Canine Kidney, preservative-free, quadrivalent 2024-08-10 00:00:00 Completed Lemuel Duke Vital Signs Vital Name Observation Time Observation Value Comments S ourasad Heart Rate 2024-08-10 09:59:00 99.00 /min Dinora en F Srikanth Respiratory Rate 2024-08-10 09:59:00 18.00 /min Lemuel Duke BP Systolic 2024-08-10 09:59:00 110 mm[Hg] Step hen F Srikanth BP Diastolic 2024-08-10 09:59:00 76 mm[Hg] Roberto phen F Srikanth Weight Measured 2024-08-10 09:59:00 145.60 pounds Lemuel Duke Height Measured 2024-08-10 09:59:00 63.00 inches Lemuel Duke Body Temperature 2024-08-10 09:59:00 98.20 degrees Lemuel Duke BP Systolic 2024-06-20 14:35:00 96 mm[Hg] Step hen F Srikanth BP Diastolic 2024-06-20 14:35:00 69 mm[Hg] Roberto phen F Srikanth Weight Measured 2024-06-20 14:35:00 148.80 pounds Lemuel Duke Height Measured 2024-06-20 14:35:00 63.00 inches Lemuel Duke Body Temperature 2024-06-20 14:35:00 97.50 degrees Lemuel Duke Heart Rate 2024-06-20 14:35:00 118.00 /min Step hen F Srikanth Respiratory Rate 2024-06-20 14:35:00 19.00 /min Lemuel Duke BP Systolic 2024-05-16 09:27:00 89 mm[Hg] Step hen F Srikanth BP Diastolic 2024-05-16 09:27:00 58 mm[Hg] Roberto phen F Srikanth Weight Measured 2024-05-16 09:27:00 155.40 pounds Lemuel Duke Height Measured 2024-05-16 09:27:00 63.00 inches Lemuel Duke Body Temperature 2024-05-16 09:27:00 97.30 degrees Lemuel Duke Heart Rate 2024-05-16 09:27:00 74.00 /min Dinora en F Srikanth Respiratory Rate 2024-05-16 09:27:00 19.00 /min Lemuel Duke BP Systolic 2024-04-25 14:38:00 106 mm[Hg] Step hen Alexandr Duke BP Diastolic 2024-04-25 14:38:00 69 mm[Hg] Roberto Duke Weight Measured 2024-04-25 14:38:00 152.80 pounds Lemuel Duke Height Measured 2024-04-25 14:38:00 63.00 inches Lemuel Duke Body Temperature 2024-04-25 14:38:00 98.00 degrees Lemuel Duke Heart Rate 2024-04-25 14:38:00 96.00 /min Dinora en Alexandr Duke Respiratory Rate 2024-04-25 14:38:00 18.00 /min Lemuel Duke Encounters Start Date/Time End Date/Time Encounter Type Admission Type Attending [facility] Care Department Encounter ID Source 2024-10-18 09:59:42 2024-10-18 09:59:42 Outpatient SFA SFA [id number] Lemuel Duke 2024-10-17 11:01:52 2024-10-17 11:01:52 Outpatient SFA SFA [id number] Lemuel Duke 2024-10-15 10:13:08 2024-10-15 10:13:08 Outpatient SFA SFA [id number] Lemuel Duke 2024-10-15 00:00:00 2024-10-15 00:00:00 Outpatient Visit SFA [id number] Lemuel Duke 2024-10-11 10:00:44 2024-10-11 10:00:44 Outpatient SFA SFA [id number] Lemuel Duke 2024-10-10 14:02:46 2024-10-10 14:02:46 Outpatient SFA SFA [id number] Lemuel Duke 2024-09-20 10:08:25 2024-09-20 10:08:25 Outpatient SFA SFA [id number] Lemuel Duke 2024-08-31 14:57:16 2024-08-31 14:57:[address] [facility] [id number] Lemuel Duke 2024-08-30 10:41:05 2024-08-30 10:41:[address] [facility] [id number] Lemuel Duke 2024-08-16 10:03:57 2024-08-16 10:03:[address] [facility] [id number] Lemuel Duke 2024-08-10 10:37:41 2024-08-10 10:37:[address] [facility] [id number] Lemuel Duke 2024-08-10 00:00:00 2024-08-10 00:00:00 Outpatient Visit SFA [id number] Lemuel Duke 2022-06-12 04:13:00 2022-06-12 04:13:00 Outpatient [facility] [id number] [facility] Program Results Test Description Test Time Test Comments Results Result Co mments Source COMPREHENSIVE METABOLIC [id number] 04:16:32* Test Item Value Reference Range Interpretation Comme nts GLUCOSE (test code = 2217) 93 MG/DL 70-99 BUN (test code = 2208) 11 MG/DL 6-20 CREATININE (test code = 2214) 0.78 MG/DL 0.60-1.30 eGFR (2020 CKD-EPI) (test co de = 07723) 97 ML/MIN/1.73 >60 CALC BUN/CREAT (test code = 2235) 14 RATIO 6-28 SODIUM (test code = 2231) 140 MEQ/L 133-146 POTASSIUM (test code = 2228) 3.5 MEQ/L 3.5-5.4 CHLORIDE (test code = 2215) 113 MEQ/L 95-107 H CARBON DIOXIDE (test code = 2206) 19 MEQ/L 19-31 CALCIUM (test code = 2209) 8.8 MG/DL 8.5-10.5 PROTEIN, TOTAL (test code = 2229) 7.0 G/DL 6.1-8.3 ALBUMIN (test code = 2201) 4.4 G/DL 3.5-5.2 CALC GLOBULIN (test code = 2240) 2.6 G/DL 1.9-3.7 CALC A/G RATIO (test code = 2234) 1.7 RATIO 1.0-2.6 BILIRUBIN, TOTAL (test code = 7) 0.4 MG/DL <=1.2 ALKALINE PHOSPHATASE (test code = 2203) 84 U/L 40-113 AST (test code = 2218) 15 U/L 9-40 ALT (test code = 2219) 10 U/L 5-40 TSH, THIRD [id number] 06:17:54* Test Item Value Reference Range Interpretation Comme nts TSH, THIRD GENERATION (test code = 2821) 1.940 UIU/ML 0.400-4.100 UNLESS OTHERWISE INDICATED, ALL TESTING PERFORMED AT [facility] [address] [place] [address] GROUNDHAND: BREONNA NI M.D. CLIA NUMBER [id number] [facility] [place]. [id number] TSH, THIRD [id number] 00:00:00* Test Item Value Reference Range Interpretation Comme nts TSH, THIRD GENERATION (test code = 2821) 1.940 UIU/ML Lemuel Strange SrikanthHERPES SIMPLEX AB, [id number] 13:29:35* Test Item Value Reference Range Interpretation Comme nts HERPES SIMPLEX AB, IgM (test code = 05504) 0.41 INDEX SEE BELOW INTERPRETATION U NITS RANGE ----- ----- NEGATIVE INDEX <=0.89 EQUIVOCAL INDEX 0.90-1.09 POSITIVE INDEX >=1.10 PAP TEST, THINPREP, IMAGED + HPV HIGH RISK + GC AND CHLAMYDIA AMPLIFIED 2024-05-17 11:52:55* Test Item Value Reference Range Interpretation Comme nts SOURCE: (test code = 8001) Unspecified SLIDES: (test code = 8011) 1 LMP: (test code = 8021) NOT GIVEN SPECIMEN ADEQUACY: (test code = 85051) (NOTE) Satisfactory for evaluation. Endocervical cells/transformation zone component present. INTERPRETATION: (test code = 01608) NILM/NO EPITH. ABNORMALITY;SEE BELOW -- ---- NEGATIVE FOR INTRAEPITHELIAL LESION OR MALIGNANCY (NILM) ------- OTHER COMMENTS: (test code = 8081) (NOTE) Shift in rodolfo suggestive of bacterial vaginosis. CONTAINER FINISHER : (test code = 8101) CARTER Salomon (ASCP) LOCATION: (test code = 55020) (NOTE) Specimens proces sed and interpreted at [facility], [address] [place] [address], , CLIA: [id number] CPT: (test code = 8140) (NOTE) 41197 UNLESS OTH ERWISE INDICATED, COMPUTER AIDED AND CONTAINER FINISHER SCREENING PERFORMED. The Pap test is a screening test with an inherent, but low probability of error. Your patient should be reminded to consult you immediately if she experiences any suspicious signs or symptoms, regardless of her Pap test result. An alternate report format containing images or consolidated prior Pap history is available as applicable. HPV HIGH RISK INTERP (test code = 25267) NEGATIVE NEGATIVE HPV 16 (test code = 35380) NEGATIVE HPV 18 (test code = 64403) NEGATIVE HPV, HR, OTHER GENOTYPES (test code = 51295) NEGATIVE Testing methodol ogy is real-time PCR utilizing hydrolysis probes with the [employer] system. The test individually detects genotypes 16 and 18, as well as the other 12 high risk types (31,33,35,39,45,51,52, 56,58,59,66,68). The expected result is negative. A negative result does not rule out the presence of HPV not included in the genotype set, a low level of infection or specimen sampling error. GONORRHEA, NAAT, THINPREP (test code = 83139) NEGATIVE NEGATIVE A negative resul t does not exclude low level infection, specimensampling error, or collection error. Testing is performed with the [employer] 6800/8800 systems usingreal-time Polymerase Chain Reaction (PCR) method. CHLAMYDIA, NAAT, THINPREP (test code = 36307) NEGATIVE NEGATIVE A negative resul t does not exclude low level infection, specimensampling error, or collection error. Testing is performed with the [employer] 6800/8800 systems usingreal-time Polymerase Chain Reaction (PCR) method. UNLESS OTHERWISE INDICATED, ALL TESTING PERFORMED AT [facility] [address] [place] [address] GROUNDHAND: BREONNA NI M.D. [place] NUMBER [id number] [facility] [place]. [id number] PATHOLOGIST SMEAR [id number] 05:50:07* Test Item Value Reference Range Interpretation Comme nts DIAGNOSIS: (test code = 8200) (NOTE) A) Smear Review - Peripheral BloodBorderline macrocytic anemia (see Comments). Absolute neutropenia (see Comments). COMMENTS: (test code = 8205) (NOTE) Causes of macroc ytic anemia include certain medications / toxins(including alcohol) / homeopathic remedies, immune / autoimmunedisorders, chronic liver disease, hypothyroidism, vitamin B12 andfolate deficiency, and reticulocytosis (such as that due to anappropriate bone marrow response to hemolysis or blood loss),among others. In this case, there is no overt evidence ofhemolysis. Clinical correlation and additional laboratory testingare recommended, as clinically indicated. If the abovenon-neoplastic causes of macrocytic anemia are excluded, then thepossibility of a primary bone marrow neoplasm, such as amyelodysplastic syndrome (MDS), may be considered. Causes of absolute neutropenia include medications / toxins /homeopathic remedies, immune / autoimmune disorders, andinfections, among others. Note that there is race-relatedvariation in normal range for ANC, including adults of Africanancestry with ANC as low as 1.0-1.5 K/uL, which is considered anormal variant without infectious complications in thispopulation. Clinical correlation is recommended. MICROSCOPIC DESCRIPTION: (test code = 8210) (NOTE) A) Peripheral bl ood smear(s) examined; description incorporatedinto the Diagnosis. PATHOLOGIST: (test code = 8250) (NOTE) Breonna temple Specimens processed and [facility] at [facility], [address] [place] [id number], , CLIA: [id number] CPT: (test code = 8400) (NOTE) [address] WBC (test code = 1001) 3.5 K/UL 3.5-11.0 RBC (test code = 1002) 3.29 M/UL 3.80-5.40 L HEMOGLOBIN (test code = 1003) 11.3 G/DL 11.5-15.5 L HEMATOCRIT (test code = 1004) 34.4 % 34.0-45.0 MCV (test code = 1005) 104.6 fL 80.0-99.0 H MCH (test code = 1006) 34.3 PG 25.0-33.0 H MCHC (test code = 1007) 32.8 G/DL 31.0-36.0 RDW (test code = 1038) 13.6 % 11.5-15.0 NEUTROPHILS (test code = 1008) 31.9 % AUTOMATED DIFFER ENTIAL CONFIRMED WITH MANUAL SLIDE REVIEW. LYMPHOCYTES (test code = 1010) 53.3 % MONOCYTES (test code = 1011) 6.4 % EOSINOPHILS (test code = 1012) 7.8 % BASOPHILS (test code = 1013) 0.6 % IMMATURE GRANULOCYTES (test code = 1036) 0.0 % NUCLEATED RBCS (test code = 1065) 0.0 /100 WBC'S See_Comment [Automated message] The system which generated this result transmitted reference range: 0.0. The reference range was not used to interpret this result as normal/abnormal. PLATELET COUNT (test code = 1015) 162 K/UL 130-400 ABSOLUTE NEUTROPHILS (test code = 1066) 1.10 K/UL 1.50-7.50 L ABSOLUTE LYMPHOCYTES (test code = 1067) 1.84 K/UL 1.00-4.00 ABSOLUTE MONOCYTES (test code = 1068) 0.22 K/UL 0.20-1.00 ABSOLUTE EOSINOPHILS (test code = 1040) 0.27 K/UL 0.00-0.50 ABSOLUTE BASOPHILS (test code = 1069) 0.02 K/UL 0.00-0.20 ABS IMMATURE GRANULOCYTES (test code = 1020) 0.00 K/UL 0.00-0.10 ABS NUCLEATED RBCS (test code = 82083) 0.00 K/UL 0.00-0.11 COMMENTS (test code = 1016) (NOTE) FEW ELLIPTOCYTES SLIGHT MACROCYTOSIS SLIGHT POLYCHROMASIA PLATELETS APPEAR NORMAL UNLESS OTHERWISE INDICATED, ALL TESTING PERFORMED AT [facility] [address] [place] [address] GROUNDHAND: BREONNA NI M.D. CLIA NUMBER [id number] [facility] [place]. [id number] RETICULOCYTE WITH [id number] 05:50:07* Test Item Value Reference Range Interpretation Comme [facility] RETICULOCYTE COUNT (test cod e = 1018) 0.97 % 0.80-2.40 ABSOLUTE RETICULOCYTE (test code = 50659) 31.9 K/UL 32.0-105.0 L FOLIC [id number] 05:38:12* Test Item Value Reference Range Interpretation Comme [facility] FOLIC ACID (test code = 2695) 6.4 UG/L SEE BELOW INTERPRETI VE RANGES DEFICIENCY . . . . . . . . . . . . . . . UG/L <4.0 POSSIBLE DEFICIENCY. . . . . . . . . . . UG/L 4.0-5.9 SUFFICIENT . . . . . . . . . . . . . . . UG/L >=6.0 VITAMIN [id number] 05:38:12* Test Item Value Reference Range Interpretation Comme [facility] VITAMIN B-12 (test code = 2840) 393 PG/ML 200-950 HERPES SIMPLEX 1/2 AB, IgG [id number] 04:23:25* Test Item Value Reference Range Interpretation Comme [facility] HERPES SIMPLEX 1 AB, IgG (test code = 03188) 0.021 INDEX SEE BELOW INTERPRETATION U NITS RANGE ----- ----- NON-REACTIVE INDEX <1.000 REACTIVE INDEX >=1.000 HERPES SIMPLEX 2 AB, IgG (test code = 78581) 56.300 INDEX SEE BELOW H INTERPRETATION U NITS RANGE ----- ----- NON-REACTIVE INDEX <1.000 REACTIVE INDEX >=1.000 PAP TEST, THINPREP, IMAGED + HPV HIGH RISK + GC AND CHLAMYDIA [id number] 00:00:00* Test Item Value Reference Range Interpretation Comme nts SOURCE: (test code = 8001) Unspecified SLIDES: (test code = 8011) 1 LMP: (test code = 8021) NOT GIVEN SPECIMEN ADEQUACY: (test code = 62118) (NOTE) INTERPRETATION: (test code = 16267) NILM/NO EPITH. ABNORMALITY;SEE BELOW OTHER COMMENTS: (test code = 8081) (NOTE) CONTAINER FINISHER: (test code = 8101) CARTER Salomon (ASCP) LOCATION: (test code = 72311) (NOTE) CPT: (test code = 8140) (NOTE) HPV HIGH RISK INTERP (test code = 81228) NEGATIVE HPV 16 (test code = 65705) NEGATIVE HPV 18 (test code = 96384) NEGATIVE HPV, HR, OTHER GENOTYPES (test code = 85461) NEGATIVE GONORRHEA, NAAT, THINPREP (test code = 42429) NEGATIVE CHLAMYDIA, NAAT, THINPREP (test code = 01873) NEGATIVE PDFE (test code = PDFReport) PDF Lemuel Strange AustinPAP TEST, THINPREP, IMAGED + HPV HIGH RISK + GC AND CHLAMYDIA A 2024-05-17 00:00:00* Test Item Value Reference Range Interpretation Comme nts SOURCE: (test code = 8001) Unspecified SLIDES: (test code = 8011) 1 LMP: (test code = 8021) NOT GIVEN SPECIMEN ADEQUACY: (test code = 54297) (NOTE) INTERPRETATION: (test code = 73648) NILM/NO EPITH. ABNORMALITY;SEE BELOW OTHER COMMENTS: (test code = 8081) (NOTE) CONTAINER FINISHER: (test code = 8101) CARTER Salomon (ASCP) LOCATION: (test code = 88844) (NOTE) CPT: (test code = 8140) (NOTE) HPV HIGH RISK INTERP (test code = 38033) NEGATIVE HPV 16 (test code = 25558) NEGATIVE HPV 18 (test code = 14908) NEGATIVE HPV, HR, OTHER GENOTYPES (test code = 66316) NEGATIVE GONORRHEA, NAAT, THINPREP (test code = 17464) NEGATIVE CHLAMYDIA, NAAT, THINPREP (test code = 37167) NEGATIVE PDFE (test code = PDFReport) PDF Lemuel Strange [place] W/AUTO [id number] 00:00:00* Test Item Value Reference Range Interpretation Comme nts WBC (test code = 1001) 5.0 K/UL RBC (test code = 1002) 3.40 M/UL HEMOGLOBIN (test code = 1003) 11.7 G/DL HEMATOCRIT (test code = 1004) 37.0 % MCV (test code = 1005) 108.8 fL MCH (test code = 1006) 34.4 PG MCHC (test code = 1007) 31.6 G/DL RDW (test code = 1038) 13.6 % PLATELET COUNT (test code = 1015) 170 K/UL Lemuel DukeCULTURE, [id number] 00:00:00* Test Item Value Reference Range Interpretation Comme nts CULTURE, URINE (test code = 96990) SPECIMEN NUMBER: [id number] Lemuel Strange [facility] W/AUTO [id number] 00:00:00* Test Item Value Reference Range Interpretation Comme nts WBC (test code = 1001) 5.0 K/UL RBC (test code = 1002) 3.40 M/UL HEMOGLOBIN (test code = 1003) 11.7 G/DL HEMATOCRIT (test code = 1004) 37.0 % MCV (test code = 1005) 108.8 fL MCH (test code = 1006) 34.4 PG MCHC (test code = 1007) 31.6 G/DL RDW (test code = 1038) 13.6 % PLATELET COUNT (test code = 1015) 170 K/UL Lemuel DukeCULTURE, [id number] 00:00:00* Test Item Value Reference Range Interpretation Comme nts CULTURE, URINE (test code = 15455) SPECIMEN NUMBER: [id number] Lemuel Strange PolkPROTHROMBIN TIME (PT)2024-04-27 00:00:00* Test Item Value Reference Range Interpretation Comme nts PROTHROMBIN TIME (PT) (test code = 1402) 14.8 SECONDS INR (test code = 53356) 1.1 Lemuel [id number] 00:00:00* Test Item Value Reference Range Interpretation Comme nts PTT (test code = 1403) 29.9 SECONDS Lemuel Strange SrikanthPROTHROMBIN TIME (PT)2024-04-27 00:00:00* Test Item Value Reference Range Interpretation Comme nts PROTHROMBIN TIME (PT) (test code = 1402) 14.8 SECONDS INR (test code = 07579) 1.1 Lemuel Strange [id number] 00:00:00* Test Item Value Reference Range Interpretation Comme nts PTT (test code = 1403) 29.9 SECONDS Lemuel Strange Srikanth
--- NOTE | 2024-11-19 15:47 | ER ---
Nurse's Notes [facility] Name: Kaylie Morrow Age: 44 yrs Sex: Female : 1980 Arrival Date: 11/19/2024 Time: 12:33 Bed 8 Private MD: Diagnosis: UTI/ Urinary tract infection, site not specified;Left sided colitis Presentation: 11/19 12:58 Chief complaint: Lower abdominal pain, difficulty urinating, and nausea x 2 days. hb Coronavirus screen: At this time, the client does not indicate any symptoms associated with coronavirus-19. Ebola Screen: No symptoms or risks identified at this time. Initial Sepsis Screen: Does the patient meet any 2 criteria? No. Patient's initial sepsis screen is negative. Does the patient have a suspected source of infection? No. Patient's initial sepsis screen is negative. Risk Assessment: Do you want to hurt yourself or someone else? Patient reports no desire to harm self or others. Onset of symptoms was November 17, 2024. 12:58 Method Of Arrival: Ambulatory hb 12:58 Acuity: MONI 3 hb Historical: - Allergies: 13:00 Demerol; hb 13:00 Toradol; hb 13:00 Tramadol HCl; hb - PMHx: 13:00 ...tachycardia syndrome; chiari malformation; vitamin C and D deficiency; hb - PSHx: 13:00 Appendectomy; section; chiari malformation surgery; Ligation of fallopian tube;hb - Immunization history:: Adult Immunizations up to date. - Infectious Disease History:: Denies. - Social history:: Smoking status: Patient reports the use of cigarette tobacco products, smokes one pack cigarettes per day. Screenin:00 [facility] ED Fall Risk Assessment (Adult) History of falling in the last 3 months, ll1 including since admission No falls in past 3 months (0 pts) Confusion or Disorientation No (0 pts) Intoxicated or Sedated No (0 pts) Impaired Gait No (0 pts) Mobility Assist Device Used No (0 pt) Altered Elimination No (0 pt) Score/Fall Risk Level 0 - 2 = Low Risk Maintained a safe environment, Hourly rounding (assess needs \T\ fall precautionary measures) done. Abuse screen: Denies threats or abuse. Nutritional screening: No deficits noted. Tuberculosis screening: No symptoms or risk factors identified. Assessment: 17:00 General: Appears uncomfortable, Behavior is calm, cooperative, appropriate for age. ll1 Pain: Complains of pain in abdomen Quality of pain is described as aching, crampy. GI: Reports lower abdominal pain, nausea. : Reports burning with urination, urgency, urinary frequency. 17:16 Reassessment: No changes from previously documented assessment. Patient and/or family ll1 updated on plan of care and expected duration. Pain level reassessed. Patient is alert, oriented x 3, equal unlabored respirations, skin warm/dry/pink. 18:15 Reassessment: 31 ml in bladder during bladder scan. Tolerated well. ll1 18:49 Reassessment: No changes from previously documented assessment. Patient and/or family ll1 updated on plan of care and expected duration. Pain level reassessed. Patient is alert, oriented x 3, equal unlabored respirations, skin warm/dry/pink. Vital Signs: 12:58 BP 102 / 68; Pulse 89; Resp 18; Temp 98.6(O); Pulse Ox 100% on R/A; Weight 68.04 kg; hb Height 5 ft. 3 in. ; Pain 8/10; 17:16 BP 104 / 66; Pulse 77; Resp 16; Pulse Ox 98% on R/A; ll1 18:48 BP 109 / 69; Pulse 71; Resp 16; Pulse Ox 100% on R/A; Pain 8/10; ll1 19:31 BP 123 / 81; Pulse 75; Resp 16; Temp 98.4; Pulse Ox 99% ; dd2 12:58 Body Mass Index 26.57 (68.04 kg, 160.02 cm) hb 12:58 Pain Scale: Adult hb 18:48 Pain Scale: Adult ll1 ED Course: 12:37 Patient arrived in ED. im 12:50 Juana Hurtado PA-C is PHCP. sb4 12:50 Gary Bynum MD is Attending Physician. sb4 12:59 Triage completed. hb 13:00 Arm band placed on. hb 16:05 Initial lab(s) drawn, by me, sent to lab. Urine collected: clean catch specimen, suraj kb4 colored. Inserted saline lock: 20 gauge in left antecubital area, using aseptic technique. Blood collected. Flushed with 10 mL NS. 16:57 José William, RN is Primary Nurse. 1 16:57 Patient placed in an exam room, on a stretcher. 1 17:00 Patient has correct armband on for positive identification. Bed in low position. 1 Provided Education on: ER procedures and process. 17:00 No provider procedures requiring assistance completed. 1 18:01 CT Abd/Pelvis - IV Contrast Only In Process Unspecified. EDMS 19:32 IV discontinued, intact, bleeding controlled, No redness/swelling at site. Pressure vk dressing applied. Administered Medications: 17:15 Drug: morphine IVP or IV 4 mg IVP once over 4 mins {Note: RASS 0, pain 8/10.} Route: ll1 IVP; Infused Over: 4 mins; Site: left antecubital; 18:30 Follow up: Response: No adverse reaction; Pain is decreased; RASS: Alert and Calm (0) [facility] 17:15 Drug: Ondansetron IVP 4 mg IVP once; over 2 minutes Route: IVP; Site: left antecubital; [facility] 18:30 Follow up: Response: No adverse reaction [facility] 17:15 Drug: NS 0.9% IV 1000 ml IV at 1000 ml once; to be given as a bolus over 60 minutes [facility] Route: IV; Rate: 1000 ml; Site: left antecubital; 18:30 Follow up: Response: No adverse reaction; IV Status: Completed infusion; IV Intake: ll1 1000ml 17:23 Drug: Rocephin IV 1 grams IV at calculated rate once; Given slow IV push per pharmacy [facility] instructions Route: IV; Rate: calculated rate; Site: left antecubital; 18:31 Follow up: Response: No adverse reaction; IV Status: Completed infusion; IV Intake: 31xnes2 18:31 Drug: metroNIDAZOLE IVPB 500 mg 100 ml IVPB at 200 ml/hr once over 30 mins Volume: 100 ll1 ml; Route: IVPB; Rate: 200 ml/hr; Infused Over: 30 mins; Site: left antecubital; 19:12 Follow up: IV Status: Completed infusion; IV Intake: 100ml dd2 18:31 Drug: Potassium PO Effervescent Tablet 50 mEq PO once; dissolve in 4 ounces of water or ll1 juice Route: PO; 18:41 Follow up: Response: No adverse reaction [facility] 18:40 Drug: NS 0.9% IV 1000 ml IV at 1000 ml once; to be given as a bolus over 60 minutes ll1 Route: IV; Rate: 1000 ml; Site: left antecubital; 19:33 Follow up: IV Status: Completed infusion; IV Intake: 1000ml dd2 18:40 Drug: fentaNYL (PF) IVP 50 mcg IVP once {Note: RASS 0, pain 8/10.} Route: IVP; Site: ll1 left antecubital; 19:13 Follow up: Response: No adverse reaction dd2 Medication: 17:00 VIS not applicable for this client. ll1 Intake: 18:30 IV: 1000ml; Total: 1000ml. ll1 18:31 IV: 10ml; Total: 1010ml. ll1 19:12 IV: 100ml; Total: 1110ml. dd2 19:33 IV: 1000ml; Total: 2110ml. dd2 Outcome: 15:46 Discharge ordered by MD. sb4 18:27 Discharge ordered by MD. sb4 19:45 Discharged to home via wheelchair, with friend, dd2 19:45 Condition: stable 19:45 Discharge instructions given to patient, Instructed on discharge instructions, follow up and referral plans. medication usage, Demonstrated understanding of instructions, follow-up care, medications, Prescriptions given X 3, 19:45 Patient left the ED. dd2 Signatures: Dispatcher [employer] EDMS Fidelia Sainz, RN José Chua RN RN ll1 Juana Hurtado, PA-C PA-C sb4 Paz Hinds Vivian vk DAVIS, DIANA, RN RN dd2 Charmaine Cheney kb4 Corrections: (The following items were deleted from the chart) 18:49 18:25 Reassessment: ll1 ll1
--- NOTE | 2024-11-19 15:47 | EDPHYS ---
Physician Documentation [facility] Name: Kaylie Morrow Age: 44 yrs Sex: Female : 1980 Arrival Date: 11/19/2024 Time: 12:33 Bed 8 Private MD: EAST[place] Physician Gary Bynum HPI: 11/19 17:05 This 44 yrs old Female presents to ER via Ambulatory with complaints of Abdominal Pain, sb4 Urinary Problem. 17:05 The patient presents with abdominal pain in the lower abdomen. Onset: The sb4 symptoms/episode began/occurred last night. The symptoms do not radiate. Associated signs and symptoms: Pertinent positives: urinary retention. Lower abdominal pain, urinary retention, and low back pain that began last night. Endorses nausea. Denies vomiting or diarrhea. States that she episode of this several years ago when she had a kidney stone. Historical: - Allergies: 13:00 Demerol; hb 13:00 Toradol; hb 13:00 Tramadol HCl; hb - PMHx: 13:00 ...tachycardia syndrome; chiari malformation; vitamin C and D deficiency; hb - PSHx: 13:00 Appendectomy; section; chiari malformation surgery; Ligation of fallopian tube;hb - Immunization history:: Adult Immunizations up to date. - Infectious Disease History:: Denies. - Social history:: Smoking status: Patient reports the use of cigarette tobacco products, smokes one pack cigarettes per day. ROS: 17:05 Constitutional: Negative for fever, chills, and weight loss, sb4 17:05 Abdomen/GI: Positive for abdominal pain, nausea, 17:05 : Positive for urinary retention, 17:05 All other systems are negative, Exam: 17:05 Head/Face: Normocephalic, atraumatic. Eyes: Extra-ocular motions intact. Periorbital sb4 areas with no swelling, redness, or edema. ENT: Mucous membranes moist. Cardiovascular: Regular rate and rhythm with a normal S1 and S2. Respiratory: No increased work of breathing, no retractions or nasal flaring. 17:05 Constitutional: The patient appears alert, awake, in obvious pain, pale, uncomfortable, 17:05 Abdomen/GI: Inspection: abdomen appears normal, Bowel sounds: normal, Palpation: soft, mild abdominal tenderness, in the suprapubic area, Vital Signs: 12:58 BP 102 / 68; Pulse 89; Resp 18; Temp 98.6(O); Pulse Ox 100% on R/A; Weight 68.04 kg; hb Height 5 ft. 3 in. ; Pain 8/10; 17:16 BP 104 / 66; Pulse 77; Resp 16; Pulse Ox 98% on R/A; ll1 18:48 BP 109 / 69; Pulse 71; Resp 16; Pulse Ox 100% on R/A; Pain 8/10; ll1 19:31 BP 123 / 81; Pulse 75; Resp 16; Temp 98.4; Pulse Ox 99% ; dd2 12:58 Body Mass Index 26.57 (68.04 kg, 160.02 cm) hb 12:58 Pain Scale: Adult hb 18:48 Pain Scale: Adult ll1 MDM: 13:04 Medical Screening Exam initiated sb4 17:06 Differential diagnosis: non-specific abd pain, Peritonitis, Pyelonephritis, sb4 Ureterolithiasis, urinary tract infection. 17:28 Data reviewed: vital signs, nurses notes, lab test result(s), radiologic studies. sb4 Counseling: I had a detailed discussion with the patient and/or guardian regarding the historical points, exam findings, and any diagnostic results supporting the discharge/admit diagnosis, lab results, radiology results. 11/19 13:04 Order name: CBC with Diff; Complete Time: 16:37 sb4 11/19 13:04 Order name: CMP; Complete Time: 16:49 sb4 11/19 13:04 Order name: Lipase; Complete Time: 16:49 sb4 11/19 13:04 Order name: Test, Urine; Complete Time: 16:35 sb4 11/19 13:04 Order name: Urinalysis w/ reflexes; Complete Time: 16:35 sb4 11/19 17:08 Order name: CT Abd/Pelvis - IV Contrast Only; Complete Time: 18:10 sb4 11/19 13:04 Order name: IV Saline Lock; Complete Time: 16:57 sb4 11/19 13:04 Order name: Labs collected and sent; Complete Time: 16:57 sb4 11/19 17:03 Order name: Bladder Scanner; Complete Time: 18:47 sb4 Administered Medications: 17:15 Drug: morphine IVP or IV 4 mg IVP once over 4 mins {Note: RASS 0, pain 8/10.} Route: ll1 IVP; Infused Over: 4 mins; Site: left antecubital; 18:30 Follow up: Response: No adverse reaction; Pain is decreased; RASS: Alert and Calm (0) 1 17:15 Drug: Ondansetron IVP 4 mg IVP once; over 2 minutes Route: IVP; Site: left antecubital; 1 18:30 Follow up: Response: No adverse reaction 1 17:15 Drug: NS 0.9% IV 1000 ml IV at 1000 ml once; to be given as a bolus over 60 minutes ll1 Route: IV; Rate: 1000 ml; Site: left antecubital; 18:30 Follow up: Response: No adverse reaction; IV Status: Completed infusion; IV Intake: ll1 1000ml 17:23 Drug: Rocephin IV 1 grams IV at calculated rate once; Given slow IV push per pharmacy ll1 instructions Route: IV; Rate: calculated rate; Site: left antecubital; 18:31 Follow up: Response: No adverse reaction; IV Status: Completed infusion; IV Intake: 14sdaw3 18:31 Drug: metroNIDAZOLE IVPB 500 mg 100 ml IVPB at 200 ml/hr once over 30 mins Volume: 100 ll1 ml; Route: IVPB; Rate: 200 ml/hr; Infused Over: 30 mins; Site: left antecubital; 19:12 Follow up: IV Status: Completed infusion; IV Intake: 100ml dd2 18:31 Drug: Potassium PO Effervescent Tablet 50 mEq PO once; dissolve in 4 ounces of water or ll1 juice Route: PO; 18:41 Follow up: Response: No adverse reaction 1 18:40 Drug: NS 0.9% IV 1000 ml IV at 1000 ml once; to be given as a bolus over 60 minutes ll1 Route: IV; Rate: 1000 ml; Site: left antecubital; 19:33 Follow up: IV Status: Completed infusion; IV Intake: 1000ml dd2 18:40 Drug: fentaNYL (PF) IVP 50 mcg IVP once {Note: RASS 0, pain 8/10.} Route: IVP; Site: ll1 left antecubital; 19:13 Follow up: Response: No adverse reaction dd2 Disposition: 21:25 Co-signature as Attending Physician, Gary Bynum MD I agree with the assessment and lul plan of care. Disposition Summary: 11/19/24 18:27 Discharge Ordered Notes: Location: Home(11/19/24 18:27) sb4 Problem: new(11/19/24 18:27) sb4 Symptoms: have improved(11/19/24 18:27) sb4 Condition: Stable(11/19/24 18:27) sb4 Diagnosis - UTI/ Urinary tract infection, site not specified sb4 - Left sided colitis sb4 Followup: sb4 - With: Private Physician - When: As needed - Reason: Recheck today's complaints, Re-evaluation by your physician Discharge Instructions: - Discharge Summary Sheet sb4 - Urinary Tract Infection, Adult, Agiz-om-Lydw sb4 - Colitis sb4 Forms: - Antibiotic Education sb4 - Prescription Opioid Use sb4 - Patient Portal Instructions sb4 - Leadership Thank You Letter sb4 Prescriptions: - cefdinir 300 mg Oral capsule - take 1 capsule ORAL route every 12 hours for 7 days; 14 capsule; Refills: 0, sb4 Product Selection Permitted - acetaminophen-codeine 300-30 mg Oral tablet - take 1 tablet ORAL route every 6 hours; 12 tablet; Refills: 0, Product sb4 Selection Permitted - Flagyl 500 mg Oral Tablet - take 1 tablet ORAL route every 12 hours for 7 days; 14 tablet; Refills: 0, sb4 Product Selection Permitted Signatures: Dispatcher [employer] EDGary Taylor MD MD cha Baxter, Heather, RN RN José William RN RN ll1 Juana Hurtado PA-C PAJaelyn sb4 ALFONSO NAYAK RN dd2 Corrections: (The following items were deleted from the chart) 13:05 13:05 CBC+H.LAB.BRZ ordered. EDMS EDMS 13:05 13:05 COMPREHENSIVE METABOLIC PANEL+C.LAB.BRZ ordered. EDMS EDMS 13:05 13:05 LIPASE+C.LAB.BRZ ordered. EDMS EDMS 13:05 13:05 Test, Urine+UC.LAB.BRZ ordered. EDMS EDMS 13:05 13:05 Urinalysis+U.LAB.BRZ ordered. EDMS EDMS 15:47 15:46 Home sb4 sb4 15:47 15:46 new sb4 sb4 15:47 15:46 have improved sb4 sb4 15:47 15:46 Stable sb4 sb4 15:47 15:46 Rib contusion, left sb4 sb4 17:09 17:09 Abdomen Pelvis W Con+CT.RAD.BRZ ordered. EDMS EDMS
[2024-11-19 16:27] LABS: Specific Gravity 1.029 (1.005-1.030)
[2024-11-19 16:31] LABS: Absolute Eosinophils 0.2 K/uL (0-0.5); Absolute Lymphocytes (CBC) 1.4 K/uL (0.7-4.9); Absolute Monocytes 0.4 K/uL (0.1-1.3); Basophils % 0.7 % (0-1.3); Eosinophils % 4.5 % (0-4.4); Hematocrit 35.4 % (36.0-45.0); Hemoglobin 11.5 g/dL (12.0-15.0); Lymphocytes % 27.6 % (15.3-44.8); MCH 33.8 pg (27.0-35.0); MCHC 32.6 g/dL (32.0-36.0); MCV 103.6 fL (80-100); Monocytes % 7.9 % (3.3-12.3); Neutrophils % 59.3 % (41.7-73.7); Platelets 159 thou/uL (152-406); RBC Red Blood Cell Count 3.42 M/uL (3.86-4.86); Red Cell Distribution Width 14.7 % (12.1-15.2); Specific Gravity 1.029 (1.005-1.030); Urine Bacteria 20-50 /HPF (<20); Urine Bilirubin NEGATIVE (Negative); Urine Blood 2+ (Negative); Urine Clarity Extremely Turbid (Clear); Urine Color Yellow (Yellow); Urine Culture Reflex Order NOT NEEDED; Urine Glucose NEGATIVE (Negative); Urine Ketones NEGATIVE (Negative); Urine Microscopic Reflex YN ORDER UMIC; Urine Mucus 3+ /HPF (None Seen); Urine Nitrite NEGATIVE (Negative); Urine Protein TRACE (Negative); Urine RBC <5 /HPF (None Seen); Urine Urobilinogen Normal (Normal); Urine WBC <5 /HPF (<5); Urine Yeast (Budding) Trace /HPF (None Seen); Urine pH 6.5 (5.0-7.0)
[2024-11-19 16:43] LABS: Albumin 3.4 g/dL (3.4-5.0); Alkaline Phosphatase 82 U/L (45-117); Anion Gap 6.1 mEq/L (5.0-15.0); BUN Blood Urea Nitrogen 11 mg/dL (7-18); Bicarbonate 22 mEq/L (21-32); Bilirubin Total 0.5 mg/dL (0.2-1.0); Globulin 3.5 g/dL (2.3-3.5); Glomerular Filtration Rate 107 ml/min (=/>90); Glucose Level 93 mg/dL (74-106); Lipase 19 U/L (13-75); Potassium 3.1 mEq/L (3.5-5.1); Protein, Total 6.9 g/dL (6.4-8.2); Sodium Level 140 mEq/L (136-145)
[2024-11-19 16:49] LABS: ALT/SGPT < 14 U/L (13-56); AST/SGOT < 10 U/L (15-37)
[2024-11-19] MEDS ORDERED: MORPHINE 4 MG/ML SYR ONE (17:06)
[2024-11-19] MEDS ORDERED: ONDANSETRON 4 MG/2 ML VIAL ONE (17:06)
[2024-11-19] MEDS ORDERED: NA CHLORIDE 0.9% 1,000 ML ONE ×2 (17:07→18:34)
[2024-11-19] MEDS ORDERED: CEFTRIAXONE 1000 MG/VIAL ONE (17:19)
--- NOTE | 2024-11-19 18:07 | RAD REPORT ---
EXAMINATION: CT ABDOMEN AND PELVIS WITH CONTRAST CLINICAL INDICATION: Female, 44 years old.ABD PAIN TECHNIQUE: CT abdomen and pelvis was performed, after the administration of IV contrast, [facility]. Axial, sagittal and coronal reconstructions were obtained. One or more of the following dose reduction techniques were used: Automated exposure control, adjustment of the mA and/o r kV according to patient size, and/or iterative reconstruction. Unless otherwise specified, incidental findings do not require dedicated imaging follow-up. [id number]. COMPARISON: No prior exam. LOWER CHEST: No acute process identified.No significant pericardial effusion. UPPER GI: No significant abnormality. LIVER: Hepatic steatosis, but otherwise unremarkable. GALLBLADDER/BILE DUCTS: No biliary ductal dilatation.? PANCREAS: No mass, ductal dilation, or durga-pancreatic fluid. SPLEEN: Unremarkable. ADRENALS: No adrenal masses. KIDNEYS AND URETERS: Normal size and contour. No hydronephrosis.No suspicious renal mass. ABDOMINAL AORTA AND OTHER VESSELS: Mild atherosclerotic changes. PERITONEUM: No abnormal free fluid. No free air. LYMPH NODES: No pathologic lymphadenopathy. ABDOMINAL WALL: No significant abnormality. SMALL BOWEL/COLON: Thickening of the distal descending colon and sigmoid colon.Appendix absent. URINARY BLADDER: Underdistended but grossly unremarkable. REPRODUCTIVE ORGANS: No pathologic process. MUSCULOSKELETAL: No acute or suspicious osseous abnormality. ADDITIONAL FINDINGS: None. IMPRESSION: Colitis involving the distal descending and sigmoid colon. No bowel obstruction.
[2024-11-19] MEDS ORDERED: POTASSIUM 25 MEQ EFFERV TAB ONE (18:21)
[2024-11-19] MEDS ORDERED: METRONIDAZOLE 500mg IVPB 500 MG/100 ML BAG IV ONE (18:21)
[2024-11-19] MEDS ORDERED: FENTANYL CITR 100 MCG/2 ML ONE (18:34)
[2024-11-19 21:33] VITALS: BP 123/81; TEMP 98.4; O2SAT 99
== END 2024-11-19 19:45 | disposition home or self-care (01) ==
LOC: ER 12:33
DX: N39.0 Urinary tract infection, site not specified (principal); K51.50 Left sided colitis without complications; F17.210 Nicotine dependence, cigarettes, uncomplicated
CPT/HCPCS: 96365; 96367; 85025; 81001; 36415; 81025; 83690; 80053; 74177; 96375; 99284; Q9967; J3010; J2405; J7030 ×2; J0696